=== PATIENT | female | born 1990 | race Caucasian/White ===

== ENCOUNTER 2017-05-31 20:35 | Emergency (ER) | payer OTHER ==
[2017-05-31 20:44] VITALS: BP 159/95
--- NOTE | 2017-05-31 21:47 | EDM.PDOC ---
ED HPI GENERAL MEDICAL PROBLEM - General Chief Complaint: Upper Extremity Injury/Pain Stated Complaint: INJURY TO HAND Time Seen by Provider: 05/31/17 20:58 Source of Information: Reports: Patient History Limitations: Reports: No Limitations - History of Present Illness INITIAL COMMENTS - FREE TEXT/NARRATIVE: The patient presents with left middle finger pain. She got it crushed between some pipe today at work. She has a subungual hematoma that she drained. She is left handed. She denies any other injury. Onset: Sudden Duration: Hour(s): Location: Reports: Upper Extremity, Left (Middle finger) Quality: Reports: Sharp Severity: Moderate Improves with: Reports: Immobilization Worsens with: Reports: Movement Context: Reports: Trauma (Crushed between some pipe) Associated Symptoms: Reports: No Other Symptoms Left 3-Middle finger Pain Score (Numeric/FACES): 5 - Related Data Allergies Allergy/AdvReac Type Severity Reaction Status Date / Time No Known Allergies Allergy Verified 05/31/17 20:44 Home Meds: Home Meds Insulin Lispro [HumaLOG] 0 unit INJECT ASDIRECTED 11/19/13 [History] Insulin Glargine,Hum.Rec.Anlog [Lantus Solostar] 32 units INJECT BEDTIME [History] Past Medical History Genitourinary History: Reports: Acute Renal Failure Endocrine/Metabolic History: Reports: Diabetes, Type I Social & Family History - Tobacco Use Smoking Status *Q: Current Every Day Smoker Years of Tobacco use: 13 Packs/Tins Daily: 1 Second Hand Smoke Exposure: Yes - Caffeine Use Caffeine Use: Reports: Coffee, Energy Drinks, Soda, Tea - Alcohol Use Days Per Week of Alcohol Use: 0 - Recreational Drug Use Recreational Drug Use: No Review of Systems - Review of Systems Review Of Systems: See Below Constitutional: Reports: No Symptoms Eyes: Reports: No Symptoms Ears: Reports: No Symptoms Nose: Reports: No Symptoms Mouth/Throat: Reports: No Symptoms Respiratory: Reports: No Symptoms Cardiovascular: Reports: No Symptoms GI/Abdominal: Reports: No Symptoms Genitourinary: Reports: No Symptoms Musculoskeletal: Reports: Other (Left middle finger injury) ED EXAM, GENERAL - Physical Exam Exam: See Below Exam Limited By: No Limitations General Appearance: Alert, No Apparent Distress Ears: Normal External Exam Nose: Normal Inspection Head: Atraumatic, Normocephalic Neck: Normal Inspection Respiratory/Chest: No Respiratory Distress Extremities: Other (Edema and ecchymosis to the tip of the left middle finger with a small subungual hematoma. Decreased sensation distally.) Course - Vital Signs Last Recorded V/S: Last Vital Signs Temp 97.8 F 05/31/17 20:42 Pulse 117 H 05/31/17 20:42 Resp 16 05/31/17 20:42 BP 159/95 H 05/31/17 20:42 Pulse Ox 99 05/31/17 20:42 - Orders/Labs/Meds Orders: Active Orders 24 hr Category Date Time Status Fingers Third Digit Lt F2 [CR] Stat Exams 05/31/17 21:10 Taken - Re-Assessments/Exams Free Text/Narrative Re-Assessment/Exam: 05/31/17 21:45 The x-ray shows distal tuft fracture. Departure - Departure Time of Disposition: 21:45 Disposition: Home, Self-Care 01 Condition: Good Clinical Impression: Crushing injury of left middle finger Qualifiers: Encounter type: initial encounter Qualified Code(s): S67.193A - Crushing injury of left middle finger, initial encounter Finger fracture, left Qualifiers: Encounter type: initial encounter Finger: middle finger Fracture type: closed Phalanx: distal Fracture alignment: nondisplaced Qualified Code(s): S62.663A - Nondisplaced fracture of distal phalanx of left middle finger, initial encounter for closed fracture - Discharge Information Referrals: Carolin Calhoun MD [Primary Care Provider] - Eugene Moses MD [Physician] - 2 Weeks Forms: ED Department Discharge, ED Return to Work/School Form Additional Instructions: Ice your finger for 15 minutes 3 times per day for 2 days. Wear the finger splint for protection. Follow up with Dr Moses in 2 weeks. Take motrin or tylenol for the pain. - My Orders Last 24 Hours: My Active Orders 05/31/17 21:10 Fingers Third Digit Lt F2 [CR] Stat - Assessment/Plan Last 24 Hours: My Active Orders 05/31/17 21:10 Fingers Third Digit Lt F2 [CR] Stat
--- NOTE | 2017-06-01 08:18 | CR ---
Left third finger: Three views centered to the left third finger were obtained. Comparison: No prior study. Fracture is identified within the tuft of the distal phalanx. Soft tissue swelling is seen. No proximal bony abnormality is identified. Impression: 1. Tuft fracture. Soft tissue swelling. 2. Left third finger study is otherwise unremarkable. Diagnostic code #2
== END 2017-05-31 22:05 | disposition home or self-care (01) ==
LOC: JD.ED 20:35
DX: S67.193A Crushing injury of left middle finger, initial encounter (principal); S62.663A Nondisplaced fracture of distal phalanx of left middle finger, initial encounter for closed fracture; F17.210 Nicotine dependence, cigarettes, uncomplicated; E10.9 Type 1 diabetes mellitus without complications; W23.1XXA Caught, crushed, jammed, or pinched between stationary objects, initial encounter
CPT/HCPCS: 73140-26-F2; 73140-F2; 99283

== ENCOUNTER 2019-05-12 10:56 | Emergency (ER) | payer BC ==
[2019-05-12 11:13] VITALS: BP 108/88; PULSE 103
[2019-05-12] MEDS ORDERED: Amoxicillin/Clavulanate K 875-125 MG Tab PO ONE (11:53)
[2019-05-12] MEDS ORDERED: Diphtheria,Pertussis(Acell),Tetanus Vaccine 0.5 ML Syringe IM ONE (11:56)
--- NOTE | 2019-05-12 12:01 | EDM.PDOC ---
ED HPI GENERAL MEDICAL PROBLEM - General Chief Complaint: Laceration Stated Complaint: HAND LAC AND CAT BITE Time Seen by Provider: 05/12/19 11:27 Source of Information: Reports: Patient History Limitations: Reports: No Limitations - History of Present Illness INITIAL COMMENTS - FREE TEXT/NARRATIVE: Patient is a 28-year-old female who presents with lacerations to her left hand and wrist, as well as a scratch to her left lower leg. Patient states that her cat was sitting in the window and the window slammed shut trapping the cat's paw on the window. During the struggle to get the cat loose, she ended up having to break the window which caused the lacerations to her left hand. She feels the cat likely bit her in the left leg. Her cat is declawed, so she feels that the scratch on the leg was likely from teeth not claws. Cat is up-to -date on its vaccinations and it is an indoor only cat. She is unsure when her last tetanus vaccination was. Left Head Pain Score (Numeric/FACES): 3 - Related Data Allergies Allergy/AdvReac Type Severity Reaction Status Date / Time No Known Allergies Allergy Verified 05/12/19 11:13 Home Meds: Home Meds Insulin Lispro [HumaLOG] 0 unit INJECT ASDIRECTED 11/19/13 [History] Insulin Glargine,Hum.Rec.Anlog [Tousergeo Max Solostar] 32 units SUBCUT BEDTIME 05/25 [History] Amoxicillin/Potassium Clav [Augmentin 875-125 Tablet] 1 each PO BID 5 Days #9 tablet 05/12/19 [Rx] Past Medical History Genitourinary History: Reports: Acute Renal Failure Musculoskeletal History: Reports: Fracture Endocrine/Metabolic History: Reports: Diabetes, Type I - Past Surgical History HEENT Surgical History: Reports: Adenoidectomy Social & Family History - Family History Family Medical History: Noncontributory - Tobacco Use Smoking Status *Q: Current Every Day Smoker Years of Tobacco use: 17 Packs/Tins Daily: 1 - Caffeine Use Caffeine Use: Reports: Coffee, Soda - Recreational Drug Use Recreational Drug Use: No ED ROS GENERAL - Review of Systems Review Of Systems: Comprehensive ROS is negative, except as noted in HPI. ED EXAM, SKIN/RASH Exam: See Below Exam Limited By: No Limitations General Appearance: Alert, WD/WN, No Apparent Distress Respiratory/Chest: No Respiratory Distress, Lungs Clear, Normal Breath Sounds, No Accessory Muscle Use, Chest Non-Tender Cardiovascular: Normal Peripheral Pulses, Regular Rate, Rhythm, No Edema, No Gallop, No JVD, No Murmur, No Rub Neurological: Alert, Oriented, CN II-XII Intact, Normal Cognition, Normal Gait, Normal Reflexes, No Motor/Sensory Deficits Psychiatric: Normal Affect, Normal Mood Skin: Warm, Dry, Normal Color, No Rash, Other (two 3 cm lacerations and a 1 cm laceration to the left ventral wrist. 1 of the 3 cm lacerations is slightly gaping however fairly superficial. There is a 1 cm flap laceration to the palm. There is also a 5 cm superficial laceration to the lateral aspect of the left lower leg.) ED SKIN PROCEDURES - Laceration/Wound Repair Left Wrist Appearance: Superficial Distal NVT: Neuro & Vascular Intact Skin Prep: Chlorhexidine (Hibiciens), Saline Exploration/Debridement/Repair: Wound Explored, No Foreign Material Found Closed with: Wound Adhesive Lac/Wound length In cm: 3 Sterile Dressing Applied: Provider Tetanus Status Addressed: Yes Complications: No Course - Vital Signs Last Recorded V/S: Last Vital Signs Temp 98.3 F 05/12/19 11:05 Pulse 103 H 05/12/19 11:05 Resp 16 05/12/19 11:05 BP 108/88 05/12/19 11:05 Pulse Ox 98 05/12/19 11:05 - Orders/Labs/Meds Orders: Active Orders 24 hr Category Date Time Status Vaccines to be Administered [RC] PER UNIT ROUTINE Care 05/12/19 11:56 Active Meds: Medications Discontinued Medications Generic Name Dose Route Start Last Admin Trade Name Freq PRN Reason Stop Dose Admin Amoxicillin/Clavulanate Potassium 1 tab 05/12/19 11:53 05/12/19 12:09 Augmentin 875 Mg/125 Mg PO 05/12/19 11:54 1 tab ONETIME ONE Administration Diphtheria/Tetanus/Acell Pertussis 0.5 ml 05/12/19 11:56 05/12/19 12:09 Adacel IM 05/12/19 11:57 0.5 ml .ONCE ONE Administration - Re-Assessments/Exams Free Text/Narrative Re-Assessment/Exam: 04/05/20 12:04 1 of the 3 cm lacerations to the left wrist was slightly gaping. This wound was closed with Dermabond. The other wounds were cleaned well. Bacitracin was applied and wound was covered with nonstick gauze and Coban. Since patient feels that it is likely at the 5 cm superficial laceration on her left leg was caused by the cat's teeth as opposed to the claw, we will treat prophylactically with Augmentin. First dose will be given here. Remaining doses will be sent to [facility]. Tetanus vaccination was updated today. Discharge instructions as documented. Departure - Departure Time of Disposition: 12:05 Disposition: Home, Self-Care 01 Condition: Fair Clinical Impression: Laceration Cat bite Qualifiers: Encounter type: initial encounter Qualified Code(s): W55.01XA - Bitten by cat, initial encounter - Discharge Information *PRESCRIPTION DRUG MONITORING PROGRAM REVIEWED*: No *COPY OF PRESCRIPTION DRUG MONITORING REPORT IN PATIENT GERARD: No Prescriptions: Amoxicillin/Potassium Clav [Augmentin 875-125 Tablet] 1 each PO BID 5 Days #9 tablet Instructions: Laceration Care, Adult Referrals: Carolin Calhoun MD [Primary Care Provider] - Forms: ED Department Discharge Additional Instructions: You were seen in the emergency department today for lacerations to your left wrist and hand, as well as a cat bite to your left lower leg. The wounds were cleaned in ER. 1 of the lacerations was closed with Dermabond adhesive. This will peel off on its own over the next few days. Recommend that you keep the lacerations clean with normal soap and water twice daily. You have been started on Augmentin to prevent infection of the cat bite. Take this twice daily for the next 5 days. Continue to monitor for signs of infection including increased swelling, redness, or purulent drainage. If these should occur, I would recommend that you follow-up either in the clinic with a primary care provider or return to the ER. Your tetanus vaccination was updated today. This is good for 10 years. Sepsis Event Note - Evaluation Sepsis Screening Result: No Definite Risk - Focused Exam Vital Signs: Vital Signs Temp Pulse Resp BP Pulse Ox 05/12/19 11:05 98.3 F 103 H 16 108/88 98 Date Exam was Performed: 05/12/19 Time Exam was Performed: 12:51 - My Orders Last 24 Hours: My Active Orders 05/12/19 11:56 Vaccines to be Administered [RC] PER UNIT ROUTINE - Assessment/Plan Last 24 Hours: My Active Orders 05/12/19 11:56 Vaccines to be Administered [RC] PER UNIT ROUTINE
== END 2019-05-12 12:13 | disposition home or self-care (01) ==
LOC: JD.ED 10:56
DX: S61.552A Open bite of left wrist, initial encounter (principal); E10.9 Type 1 diabetes mellitus without complications; W55.01XA Bitten by cat, initial encounter; F17.210 Nicotine dependence, cigarettes, uncomplicated
CPT/HCPCS: 12002; 90471; 90715; 99282; A9270; 99283